=== PATIENT | female | born 1960 | race African-American/Black ===

== ENCOUNTER 2023-08-09 00:53 | Day surgery (SDC) | payer OTHER, SELFPAY ==
[2023-07-15 13:21] VITALS: BMI 47.7
--- NOTE | 2023-08-07 11:35 | SUR.PREOP ---
Patient called regarding upcoming procedure. Reviewed preop instructions, appointment times, and procedure prep. Instructions resent per pt's request.
--- NOTE | 2023-08-08 14:18 | PM.HPGS ---
History of Present Illness History of Present Illness Consent: Risks, benefits, and alternatives have been discussed and questions answered. Patient agrees to proceed with procedure. Chief complaint: neoplasm screening Narrative: Katelyn Joshua is a 63 year old female referred for colon cancer screening. Review of Systems Review of Systems: All systems reviewed & are unremarkable except as noted in HPI and below [facility] Social History Social History Smoking status: Never smoker Substance use type: does not use Living arrangements: other Additional living arrangements comments: with sp Meds Home Medications and Allergies Home Medications Medication Instructions Recorded Confirmed Type No Home Medications 07/15/23 08/09/23 History Allergies Allergy/AdvReac Type Severity Reaction Status Date / Time codeine AdvReac Unknown Verified 08/09/23 08:50 Exam Const: General: alert Orientation/consciousness: patient oriented x3 Resp: Auscultation: clear to auscultation bilaterally Cardio: Rhythm: regular rhythm GI: GI Palp: Yes Soft to palpation and No Tenderness to palpation present (GI) Neuro: General: patient oriented x3 Assessment and Plan Assessment and plan (1) Colon cancer screening: Code(s): Z12.11 - Encounter for screening for malignant neoplasm of colon Status: Acute Assessment and Plan: Colonoscopy with possible biopsy or polypectomy or cautery or injection of substances.
[2023-08-09 08:52] VITALS: BP 145/88; PULSE 71; RESP 20; TEMP 35.8; O2SAT 100
[2023-08-09] MEDS: LACTATED RINGERS 1,000 ML 150 ML IV CONT (09:04)
--- NOTE | 2023-08-09 09:53 | WPDANESEPPF ---
Anes - Initial Pre Proc Eval Procedure: Operation Date: 08/09/23 10:00 Proposed Procedures p Screening Colonoscopy - Jose Alfredo Stack MD Date/Time: 08/09/23 09:53 Surgeon: Jose Alfredo Stack MD Pre Op Diagnosis: neoplasm screening Patient Data Age: 63 Gender: F Height: 1.6 m Weight: 125.1 kg Last Vital Signs Temp 96.4 F L 08/09/23 08:52 Pulse 71 08/09/23 08:52 Resp 20 08/09/23 08:52 BP 145/88 H 08/09/23 08:52 Pulse Ox 100 08/09/23 08:52 O2 Del Method Room Air 08/09/23 08:52 Allergies Allergy/AdvReac Type Severity Reaction Status Date / Time codeine AdvReac Unknown Verified 08/09/23 08:50 Home Medications Medication Instructions Recorded Confirmed Type No Home Medications 07/15/23 08/09/23 History Patient hx anesthesia problems: none Family hx anesthesia problems: none Results Review: All pre-operative results and documents have been reviewed as part of the pre-operative evaluation. [facility] Social History Social History Smoking status: Never smoker Substance use type: does not use Living arrangements: other Additional living arrangements comments: with sp Anes - Eval Final PreProcedure Day of Procedure 08/09/23 09:53 Patient weight: morbidly obese Heart: regular rate and rhythm Lungs: clear to auscultation Airway: Mallampati scale class III Neurological: alert and oriented Last oral intake: >/= 8 hours ASA classification: III Emergent: no Anesthetic plan: proceed Anesthesia type and monitoring: general GIVS and standard monitoring Results Review: All pre-operative results and documents have been reviewed as part of the pre-operative evaluation. Informed Consent: The patient's anesthetic plan and its attendant risks and benefits were discussed with the patient/family/POA. Questions were solicited and answers provided to the satisfaction of the patient/family/POA.
[2023-08-09 10:20] VITALS: BP 97/56; PULSE 60; RESP 22; O2SAT 100
[2023-08-09 10:30] VITALS: BP 104/63; PULSE 56; RESP 18; O2SAT 100
[2023-08-09 10:40] VITALS: BP 117/74; PULSE 58; RESP 18; O2SAT 100
== END 2023-08-09 10:54 | disposition home or self-care (01) ==
PROVIDERS: Visit Provider Internal Medicine Gastroenterology
PROC: 0DJD8ZZ Inspection of Lower Intestinal Tract, Via Natural or Artificial Opening Endoscopic (ICD-10-PCS; CPT 45378; principal; 2023-08-09 10:00)
DX: Z12.11 Encounter for screening for malignant neoplasm of colon (principal); K51.30 Ulcerative (chronic) rectosigmoiditis without complications; E66.01 Morbid (severe) obesity due to excess calories; Z68.42 Body mass index [BMI] 45.0-49.9, adult
CPT/HCPCS: 45380; 88305; J2704; J7120

== ENCOUNTER 2024-05-06 07:26 | Emergency (ER) | payer OTHER, SELFPAY ==
--- NOTE | ~2024-05-06 | CT_ITS ---
CT of the Abdomen and Pelvis: Indication: Abdominal pain Technique: 2.5 mm axial scans were obtained through the abdomen and pelvis following intravenous adm inistration of 100 cc of Omnipaque 350. Dose reduction technique was used on this scan by utilizing a utomated exposure control and iterative reconstruction technique. The dose-length product (DLP) was 1 153.61 mGy-cm. Findings: Scans through the lung bases are unremarkable. The liver, spleen, pancreas, gallbladder, adrenals and kidneys are within normal limits. No evidence of aortic aneurysm. No lymphadenopathy. No bowel obstruction or bowel wall thickening. There evidence of prior bariatric surgery. Prominent s tool suggests constipation. Images through the pelvis were performed. Urinary bladder unremarkable. No pelvic mass. No ascites. Impression: Constipation. Reviewed, dictated and finalized at location . Impression: Constipation.
[2024-05-06 07:31] VITALS: BP 137/89; PULSE 60; RESP 16; TEMP 36.4; O2SAT 98
[2024-05-06 07:55] LABS: Basophils Percent Auto 0.6 % (0.2-1.2); Eosinophils Absolute Auto 0.1 K/mm3 (0-0.3); Eosinophils Percent Auto 1.4 % (0-4.4); Hematocrit 40.1 % (37.0-47.0); Hemoglobin 12.9 g/dL (12.0-15.0); Immature Granulocyte Absolute 0.01 K/mm3 (0.00-0.031); Immature Granulocyte Percent A 0.1 % (0-0.5); Lymphocytes Percent Auto 25.1 % (18.3-44.2); Mean Corpuscular HGB Conc 32.2 g/dl (32-36); Mean Corpuscular Hemoglobin 29.5 pg (26-34); Mean Corpuscular Volume 91.6 fl (80-100); Mean Platelet Volume 10.4 fl (7.4-10.4); Monocytes Absolute Auto 0.5 K/mm3 (0.1-0.6); Neutrophils Absolute Auto 4.7 K/mm3 (1.3-6.7); Neutrophils Percent Auto 65.8 % (45.5-73.1); Platelet Count Result 289 k/mm3 (150-375); Red Blood Count 4.38 M/mm3 (4.2-5.4); Red Cell Distribution Width 16.6 % (11.5-14.5); White Blood Count 7.2 K/mm3 (4.5-10.0)
--- NOTE | 2024-05-06 07:57 | PC.NURSE ---
pt unable to urinate for specimen at this time. pt declining straight cath. call light given to pt and advice to use when she has to use the restroom.
[2024-05-06 08:10] LABS: Alanine Aminotransferase 16 U/L (6-35); Albumin Level 4.1 g/dL (3.5-5.1); Alkaline Phosphatase 88 U/L (38-126); Anion Gap 8 mmol/L (4-12); Aspartate Amino Transferase 27 U/L (14-36); Bilirubin,Total 0.5 mg/dL (0.2-1.3); Blood Urea Nitrogen 9 mg/dL (7-17); Calcium 9.6 mg/dL (8.4-10.2); Carbon Dioxide 28 mmol/L (22-30); Chloride 107 mmol/L (98-107); Estimated CRCL calculation 94 ml/min; Estimated Glomerular Filt Rate > 60; Glucose 91 mg/dL (65-110); Lipase 28 U/L (23-300); Potassium 3.4 mmol/L (3.4-5.0); Sodium 143 mmol/L (137-145)
[2024-05-06 08:40] VITALS: BP 140/77; PULSE 56; RESP 12; O2SAT 100
[2024-05-06 09:16] LABS: Add Urine Microscopic? YES; Appearance Urine Cloudy (Clear); Bacteria Urine 4+ /hpf; Bilirubin Urine Negative (Negative); Blood Urine Negative (Negative); Color Urine Dark Yellow (Yellow); Glucose Urine UA Negative (Negative); Ketones Urine 1+ mg/dL (Negative); Leukocyte Esterase Ur 3+ LEU/UL (Negative); Mucus Urine Present /lpf; Need Manual Microscopic Reviewed; Nitrate Urine Negative (Negative); Protein Urine Trace mg/dL (Negative); RBC Urine 21-50 /hpf (0-2); Specific Grav Ur 1.025 (1.001-1.035); Squamous Epithelial Cell Urine Many /hpf (Few)
--- NOTE | 2024-05-06 09:16 | ED_ITS ---
HPI - General Adult General Chief complaint: Abdominal Pain Stated complaint: ABDOMINAL PAIN Time Seen by Provider: 05/06/24 07:52 History of Present Illness HPI narrative: 63-year-old female presenting to the emergency department for evaluation for abdominal cramping and rectal pain. Patient does report increased rectal pressure when attempting to have a bowel movement. Patient does have history of constipation. Related Data Allergies Allergy/AdvReac Type Severity Reaction Status Date / Time codeine AdvReac Unknown Verified 05/06/24 07:35 Review of Systems Review of Systems: All systems reviewed & are unremarkable except as noted in HPI and below [facility] Social History Social History Smoking status: Never smoker Substance use type: does not use Living arrangements: other Additional living arrangements comments: with sp Exam Narrative: APPEARANCE: Well appearing, no pain, no distress, well-nourished. HEAD: normocephalic, atraumatic. EYES: PERRLA/EOMI, conjunctivae clear. NOSE: Normal no drainage EARS:TMS clear with good light reflex. THROAT: Pharynx clear, no exudate. NECK: Supple. No adenopathy, no masses. RESPIRATORY: Airway patent, respirations nonlabored. Clear to auscultation bilaterally, no rales, rhonchi, wheezing. CARDIOVASCULAR: Regular rate and rhythm without murmurs rubs or gallops. ABDOMINAL: Soft, nontender, nondistended, normal bowel sounds MUSCULOSKELETAL: Moves all extremities. Strength/ROM intact, No edema, No calf tenderness. NEURO: Alert. Cranial nerves II through XII intact. Good gait. Good coordination Rectal exam: Large stool ball within the rectum, patient did not tolerate digital fecal disimpaction SKIN: Warm, dry. Normal Color Course Vital Signs Vital signs: Vital Signs Temperature 97.6 F 05/06/24 07:31 Pulse Rate 60 05/06/24 07:31 Respiratory Rate 16 05/06/24 07:31 Blood Pressure 137/89 05/06/24 07:31 Pulse Oximetry 98 05/06/24 07:31 Oxygen Delivery Room Air 05/06/24 07:31 Temperature 97.6 F 05/06/24 07:31 Pulse Rate 56 L 05/06/24 08:40 Respiratory Rate 12 05/06/24 08:40 Blood Pressure 140/77 05/06/24 08:40 Pulse Oximetry 100 05/06/24 08:40 Oxygen Delivery Room Air 05/06/24 07:31 Medical Decision Making MDM Narrative Medical decision making narrative: 63-year-old female presented to the emergency department for evaluation for constipation. CT scan does show evidence of constipation. Patient is afebrile with no leukocytosis and hemoglobin of 12.9. No acute abnormalities on the CMP. Patient did not tolerate rectal disimpaction. Proceeding with soapsuds enema. Patient did not have large results with the for soapsuds enema patient did request a 2nd soapsuds enema. Patient was also advised to increase her MiraLax dosing. Patient was encouraged of close follow-up with GI. Differential Diagnosis Differential Diagnosis: Colitis, diverticulitis Vital Signs Vital Signs: Vital Signs Temperature 97.6 F 05/06/24 07:31 Pulse Rate 60 05/06/24 07:31 Respiratory Rate 16 05/06/24 07:31 Blood Pressure 137/89 05/06/24 07:31 Pulse Oximetry 98 05/06/24 07:31 Oxygen Delivery Room Air 05/06/24 07:31 Temperature 97.6 F 05/06/24 07:31 Pulse Rate 56 L 05/06/24 08:40 Respiratory Rate 12 05/06/24 08:40 Blood Pressure 140/77 05/06/24 08:40 Pulse Oximetry 100 05/06/24 08:40 Oxygen Delivery Room Air 05/06/24 07:31 Lab Data Lab results reviewed: Yes I reviewed the patient's lab results. 05/06/24 07:46 05/06/24 07:46 Labs: Lab Results 05/06/24 05/06/24 Range/Units 07:46 08:42 WBC 7.2 (4.5-10.0) K/mm3 RBC 4.38 (4.2-5.4) M/mm3 Hgb 12.9 (12.0-15.0) g/dL Hct 40.1 (37.0-47.0) % MCV 91.6 (80-100) fl MCH 29.5 (26-34) pg MCHC 32.2 (32-36) g/dl RDW 16.6 H (11.5-14.5) % Plt Count 289 (150-375) k/mm3 MPV 10.4 (7.4-10.4) fl Immature Gran % (Auto) 0.1 (0-0.5) % Neut % (Auto) 65.8 (45.5-73.1) % Lymph % (Auto) 25.1 (18.3-44.2) % [place] % (Auto) 7.0 (2.6-8.5) % Eos % (Auto) 1.4 (0-4.4) % Baso % (Auto) 0.6 (0.2-1.2) % Lymph # (Auto) 1.80 (0.9-3.2) K/mm3 [place] # (Auto) 0.5 (0.1-0.6) K/mm3 Eos # (Auto) 0.1 (0-0.3) K/mm3 Baso # (Auto) 0.0 (0.0-0.1) K/mm3 Abs Immat Gran (auto) 0.01 (0.00-0.031) K/mm3 Absolute Neuts (auto) 4.7 (1.3-6.7) K/mm3 Absolute Nucleated RBC 0.000 (0.0-0.012) K/mm3 Nucleated RBC % 0.0 (0.0-0.2) % Sodium 143 (137-145) mmol/L Potassium 3.4 (3.4-5.0) mmol/L Chloride 107 (98-107) mmol/L Carbon Dioxide 28 (22-30) mmol/L Anion Gap 8 (4-12) mmol/L BUN 9 (7-17) mg/dL Creatinine 0.60 L (0.7-1.0) mg/dL Estim Creat Clear Calc 94 ml/min Estimated GFR > 60 (59 - ) Glucose 91 (65-110) mg/dL Calcium 9.6 (8.4-10.2) mg/dL Total Bilirubin 0.5 (0.2-1.3) mg/dL AST 27 (14-36) U/L ALT 16 (6-35) U/L Alkaline Phosphatase 88 (38-126) U/L Total Protein 8.0 (6.3-8.2) g/dL Albumin 4.1 (3.5-5.1) g/dL Lipase 28 (23-300) U/L Urine Color Dark yellow (Yellow) Urine Appearance Cloudy H (Clear) Urine pH 7.0 (5.0-9.0) Ur Specific [place] 1.025 (1.001-1.035) Urine Protein Trace (Negative) mg/dL Urine Glucose (UA) Negative (Negative) mg/dL Urine Ketones 1+ H (Negative) mg/dL Ur Blood (Man) Negative (Negative) Urine Nitrate Negative (Negative) Urine Bilirubin Negative (Negative) Urine Urobilinogen 1.0 (<2.0) mg/dL Add Ur Microanalysis Reviewed Leukocyte Esterase Rfl 3+ H (Negative) MAUREEN/UL Urine RBC 21-50 H (0-2) /hpf Urine WBC 6-10 H (0-3) /hpf Ur Squamous Epith Cells Many H (Few) /hpf Urine Bacteria 4+ H /hpf Urine Casts 3-5 Urine Mucus Present /lpf Imaging Data Radiologist's impression: Impressions Abdomen/Pelvis CT 05/06/24 08:41 Impression: Constipation. Discharge Plan Discharge Clinical Impression: Constipation, UTI (urinary tract infection) Patient Disposition: Home, Self-Care Condition: Stable Instructions: Antibiotic Form, Constipation (DC), Abdominal Pain (ED) Additional Instructions: MiraLax as directed to help with constipation. If MiraLax does not help to resolve your constipation then I also recommend magnesium sulfate. Have close follow-up with GI. If you have any worsening symptoms and please call or return to the emergency department. Prescriptions: New cephalexin 500 mg capsule 500 mg PO Q8H 7 Days Qty: 21 0RF No Action mesalamine 1.2 gram tablet,delayed release (DR/EC) 2.4 g PO DAILY Qty: 180 1RF Follow-up/Referrals: UNKNOWN,DOCTOR [Primary Care Provider] -
--- NOTE | 2024-05-06 12:23 | PC.NURSE ---
pt reports she still feels backed up and would like another soaps suds enema. EDP provider made aware and okay with administering another enema.
== END 2024-05-06 13:06 | disposition home or self-care (01) ==
PROVIDERS: Emergency Provider Emergency Medicine
DX: N39.0 Urinary tract infection, site not specified (principal); K59.00 Constipation, unspecified
CPT/HCPCS: 36415; 74177; 80053; 81001; 83690; 85025; 87086; 96365; 99284; J0696; Q9967

== ENCOUNTER 2024-10-08 14:16 | Outpatient (CLI) | payer OTHER, SELFPAY ==
--- OUTSIDE RECORDS SUMMARY | 2024-10-08 14:47 | XMS_ITS | Clinical Summary ---
Author Organization [facility] Address [address] [place] [address] Care Team Providers Care Corduroy Cutter Operator Name Role Phone Meena Roberson DO Primary Care Provider [phone] [phone] Allergies Active Allergy Reactions Criticality Noted Date Comments Codeine Other (see comment) 04/23/2023 Reaction: Other, Medications mesalamine EC (LIALDA) 1.2 g Tab EC tablet Take 2 tablets (2.4 g total) by mouth daily. 08/12/2023 Active nitrofurantoin, macrocrystal-mo nohydrate, (MACROBID) 100 MG capsuleIndicati ons:Urinary frequency Take 1 capsule (100 mg total) by mouth 2 (two) times daily for 5 days. 10 capsule 10/01/2024 10/07/19 25 Active Problems Problem Noted Date Diagnosed Date Urinary frequency 10/01/2024 S/P bariatric surgery 04/29/2024 Prediabetes 05/09/2023 Obstructive sleep apnea 04/23/2023 Assessment & Plan (09/09/2023 3:54 PM BUS MONITOR): [facility] Home Sleep Study 09/05/23 RESPIRATORY ANALYSIS SUMMARY A total of 29 apneas (4 of which were Central/Mixed based on respiratory effort) and 126 hypopneas were identified. The total number of obstructive events (apneas and hypopneas) was 151. The Total Apnea Index (central/mixed and obstructive events) was 5.8 per hour. The Central/Mixed Apnea Index was 0.8 per hour based on respiratory effort. The Central/Mixed % Ratio was 4%. During the recording period, there was a total of 110 desaturations. The baseline oxygen level was 100% and the lowest oxygen level was 76%. The time spent at or below an oxygen saturation of 88% was 12 min 4 %. The AHI 3% (RDI) was 31.1 per hour. During periods of the recording the Maximum Density of the AHI 3% (RDI) was elevated up to 73.8. The AHI 4% was 22.5 per hour; this index includes hypopneas that exhibit oxygen desaturations of 4% or greater, and all apneas. INTERPRETATION: During the recording there was evidence of moderate obstructive sleep apnea (KANDACE) based on the 4% criterion for hypopnea. Based on the 3% criterion, the severity would be elevated to severe sleep apnea. There was evidence of significant oxygen desaturation. Specifically, the time that the SpO2 was at or below 88% was 12 min (4%). Class 3 severe obesity due t o excess calories with serious comorbidity and body mass index (BMI) of 50.0 to 59.9 in adult 11/21/2013 Overview (09/09/2023): OBESITY NOS Hyperlipidemia 11/21/2013 Overview (09/09/2023): HYPERLIPIDEMIA NEC/NOS Ulcerative colitis ([facility]) 11/21/2013 Overview (09/09/2023): ULCERATIVE COLITIS Resolved Problems Problem Noted Date Diagnosed Date Resolved Date Onychomycosis of right great toe 04/23/2023 04/29/2024 Encounters Date Type Department Care Team Description 10/01/2024 10:40 AM CDT Office Visit [facility] Medical [facility] Family Medicine [address] [phone] Memo Garza MD Urine 10/01/2024 - 10/01/2024 11:59 PM CDT Hospital Encounter [facility] [address] [place] [address] Memo Garza MD Discharge Disposition: Home or Self Care (Routine Discharge) 10/01/2024 Travel 08/14/2024 Scan [facility] SRVCS Scanned, [facility] from Last 3 Months Immunizations Name Administration Dates Next Due Fluzone (IIV3, Trivalent, 0. 5 ML Prefilled Syringe) 04/29/2024 Influenza (Generic) 03/06/2016, 4,05/12/2013, 012,04/12/2011 Influenza Adult (Generic) 04/13/2023,,04/21/2021, 020,05/07/2019,05/06/2018 MODERNA COVID-19 BIVALENT (1 2+), MRNA, LNP-S, PF 06/05/2022 MODERNA COVID-19 (12+) MRNA, LNP-S, PF, 100 MCG/ 0.5 ML DOSE 09/17/2020,08/20/2020 MODERNA COVID-19 (CLERICAL GRADER KIM MONSERRAT), MRNA, LNP-S, PF, 50 MCG/ 0.25 ML DOSE 12/26/2021,06/06/2021 PFIZER COVID-19 (12+) MRNA, LNP-S, PF, SIL-SUCROSE, 30 MCG/0.3 ML (COMIRNATY) 04/29/2024 Tdap (Generic) 03/06/2016 Family History Relation Status Comments Brother 1 Alive Brother 2 Alive Brother 3 Alive Daughter Alive Father Maternal Grandfather Maternal Grandmother Mother Paternal Grandfather Paternal Grandmother Sister 1 Alive Sister 2 Alive Sister 3 Alive Son Alive Social History Tobacco Use Types Packs/Day Years Used Date Smoking Tobacco: Never Passive Smoke Exposure: Never Smokeless Tobacco: Never Tobacco Cessation:Counseling Given: Yes Alcohol Use Standard Drinks/Week Comments Never 0 (1 standard drink = 0.6 oz pur e alcohol) PHQ-2 Answer Date Recorded Patient Health Questionnaire-2 Score 0 10/01/2024 Comments No Sex and Gender Information Value Date Recorded Sex Assigned at Not on file Legal Sex Female 10:07 AM CDT Gender Identity Not on file Sexual Orientation Not on file Last Filed Vital Signs Vital Sign Reading Time Taken Comments Blood Pressure 139/81 10/01/2024 10:47 AM CDT Pulse 61 10/01/2024 10:47 AM CDT Temperature 36.3 C (97.4 F) 10/01/2024 10:47 AM CDT Respiratory Rate 17 10/01/2024 10:47 AM CDT Oxygen Saturation 100% 10/01/2024 10:47 AM CDT Inhaled Oxygen Concentration - - Weight 92.8 kg (204 lb 8 oz) 10/01/2024 10:47 AM CDT Height 161.3 cm (5' 3.5 ) 04/29/2024 3:33 PM CDT Body Mass Index 35.66 04/29/2024 3:33 PM CDT Plan of Treatment Upcoming Encounters Date Type Department Care Team (Late st Contact Info) Description 05/11/2025 2:20 PM BUS MONITOR Office Visit [facility] Medical Group Family Medicine - [place] [address] [place] [phone] Meena Roberson DO [place], [place] [id number] Health Maintenance Due Date Last Done Comments Zoster Vaccines (1 of 2) 2010 Annual Physical 04/29/2025 04/29/2024 Mammogram Screening 2025 2023, 01/27/2015, 10/12/2013, Additional history exists DTaP, Tdap and Td Vaccines (2 - Td or Tdap) 03/06/2026 03/06/2016 Cervical Cancer Screening Pap Smear (Age 30 to 64) Every 3 Years 05/09/2026 05/09/2023 Cervical Cancer Screening Pap with HPV Testing (Age 30 to 64) Every 5 Years 05/09/2028 05/09/2023 Cervical Cancer Screening with HPV 05/09/2028 Colorectal Cancer Screening Colonoscopy (10 Years) 08/09/2033 08/09/2023 RSV Immunization or 60+ Years (1 - 1-dose 75+ series) 2035 Hepatitis C Completed 04/23/2023 COVID-19 Vaccine Completed 04/29/2024, 01/2023, 06/05/2022, Additional history exists PHQ-2 (Physician [place]) Completed 10/01/2024 Meningococcal B Vaccine Aged Out No l onger eligible based on patient's age to complete this topic Meningococcal Vaccine Aged Out No jennifer yung eligible based on patient's age to complete this topic Pneumococcal Vaccine: Pediatrics (0 to 5 Years) and At-Risk Patients (6 to 64 Years) Aged Out No longer eligible based on patient's age to complete this topic RSV Immunizations Under 20 Months Aged Out No longer eligible based on patient's age to complete this topic Procedures Procedure Name Priority Date/Time Associated Diagnosis Comments URINE BACTERIA CULTURE Routine 10/01/2024 11:33 AM CDT Urinary frequency URINALYSIS AUTO DIP Routine 10/01/2024 Urinary frequency COLONOSCOPY GENERIC (SCAN ORDER) 08/09/2023 MG SCREENING W JANETH LENA DIGI Routine 2023 3:45 PM BUS MONITOR Screening mammogram for breast cancer HUMAN PAPILLOMAVIRUS, HIGH-RISK TYPES Routine 05/09/2023 12:00 PM CDT CYTOPATH CERV/VAG THIN LAYER Routine 05/09/2023 12:00 AM CDT HEPATITIS C ANTIBODY Routine 04/23/2023 10:43 AM CDT Encounter for hepatitis C screening test for low risk patient from Last 3 Months or Most Recently Relevant to Health Maintenance Results * URINE BACTERIA CULTURE (10/01/2024 11:33 AM CDT) SPEC DESCRIPTION URINE CLEAN CATCH 10/01/2024 11:33 AM CDT [facility] SPECIAL REQUESTS NO SPECIAL REQUEST 10/01/2024 11:33 AM CDT [facility] CULTURE RESULT FEW CONTAMINANTS 09/06 7:42 AM CDT [facility] URINE SPECIMEN OBTAINED BY CLEAN CATCH PROCEDURE / Unknown 10/01/2024 11:33 AM CDT 10/01/2024 8:57 PM CDT us Memo Garza MD MICROBIOLOGY - GENERAL ORDERAB LES Final Result Performing Organization Address City/[facility]/ZIP Co de Phone Number [facility] [address] [place] [address], [place] [phone] * (ABNORMAL) URINALYSIS AUTO DIP (10/01/2024) COLOR (U) YELLOW YELLOW MG-JOYNER KARLI, ROBYN TRANSPARENCY CLEAR CLEAR MG-SMITH MAN KARLI, ROBYN GLUCOSE (U) NEGATIVE NEGATIVE MG/DL MG-JOYNER KARLI, ROBYN BILIRUBIN (U) NEGATIVE NEGATIVE MG-GLORIA TMAN KARLI, ROBYN KETONES MG/DL (U) NEGATIVE NEGATIVE MG/DL MG-JOYNER KARLI, ROBYN SPECIFIC GRAVITY (U) 1.025 1.001 - 1.035 MG-JOYNER KARLI, ROBYN BLOOD (U) TRACE (Hemolyzed)( A) NEGATIVE MG-JOYNER KARLI, ROBYN U PH 5.5 5.0 - 9.0 MG-JOYNER KARLI, ROBYN PROTEIN (U) NEGATIVE NEGATIVE mg/dL MG-JOYNER KARLI, ROBYN UROBILINOGEN 0.2 0.2 - 1.0 EU/dL = mg/dL MG-JOYNER KARLI, ROBYN NITRITES NEGATIVE NEGATIVE MG/DL MG-JOYNER KARLI, ROBYN LEUKOCYTES (U) 1+ (SMALL)(A) NEGATIVE MG-JOYNER KARLI, ROBYN URINE SPECIMEN OBTAINED BY CLEAN CATCH PROCEDURE / Unknown 10/01/2024 Memo Garza MD URINE ORDERABLES Final Result MG-JOYNERAPRIL CALVILLO, ROBYN [address] [place] [address], [place] [phone] * COLONOSCOPY GENERIC (SCAN ORDER) (08/09/2023) 08/09/2023 [facility] Scanned SCANNING Final Resu lt * MG SCREENING W JANETH LENA DIGI (2023 3:45 PM BUS MONITOR) Anatomical Region Laterality Modality Breast Bilateral Mammography 05/22/2023 12:2 6 PM BUS MONITOR Narrative 05/22/2023 12:27 PM BUS MONITOR Examination: Digital bilateral screening mammogram with 3D Tomosynthesis Exam Date/Time: 2023 3:13 PM Reason For Exam: Screening mammogram Benign biopsy of unknown breast at unknown date. No personal or family history of breast cancer. No current complaints. Comparison: Mammograms from 01/27/2015 10/12/2013 Technique: Digital screening mammography of both breasts was performed in addition to 3-D Tomosynthesis technique. This study was read with the assistance of a computer-aided detection system. Tissue density: There are scattered areas of fibroglandular density. Findings: Benign bilateral axillary lymph nodes. Biopsy marker again seen in the left breast in stable position. Overall parenchymal pattern unchanged from prior studies. There is no new focal asymmetry, dominant mass lesion, area of skin thickening, or cluster of suspicious appearing calcifications in either breast to suggest malignancy. ===== IMPRESSION: ===== 1. Stable mammographic appearance with no new findings to suggest malignancy in either breast. Assessment: ACR BI-RADS 2 - BENIGN FINDING(S) Recommendation: 1:Routine Screening Bilateral Comments: Ordered By: MEENA ROBERSON Interpreted By: Adolfo López MD, 05/22/2023 12:26 PM Meena Roberson DO MAMMO Final Resul t * HUMAN PAPILLOMAVIRUS, HIGH-RISK TYPES (05/09/2023 12:00 PM CDT) SPEC DESCRIPTION CERVIX 05/13/20 9:08 AM BUS MONITOR [facility] HPV DNA HIGH RISK NEGATIVE NEGATIVE 05/14/2023 12:57 AM BUS MONITOR [facility] Comment:SEE CYTOLOGY REPORT 05/09/2023 12:0 0 PM CDT us Meena M James DO PATHOLOGY/CYTOLOGY ORDERABL ES Final Result [facility] [address] [place] [address], * Cytopath Cerv/Vag Thin Layer (05/09/2023 12:00 AM CDT) THIN PREP PAP [facility] [address] [place] [address] Department of Pathology Pathology Report CERVICAL/VAGINAL PAP SMEAR REPORT Name: KATELYN JOSHUA Age: 11 1960 (Age: 62) Location[facility] Sex: F Collected Date: 05/09/2023 [facility] #: [id number] Date Received: 05/13/2023 Date Reported: 05/14/2023 Provider: MEENA ROBERSON DO INTERPRETATION CERVICAL/ENDOCERVI BRIAN: SATISFACTORY FOR EVALUATION. ENDOCERVICAL/TRANS FORMATION ZONE COMPONENT ABSENT. NEGATIVE FOR INTRAEPITHELIAL LESION OR MALIGNANCY. NEGATIVE FOR HIGH RISK HPV. The FDA approved Aptima HPV assay is an in vitro nucleic acid amplification test for the qualitative detection of E6/E7 viral messenger RNA (mRNA) from 14 high-risk types of human papillomavirus (HPV) in cervical specimens. The high-risk HPV types detected by the assay include: 16,18,31,33,35,39, 45,51,52,56,58,59, 66, and 68. Electronically Signed Out By JOSE Burkett (ASCP) CLINICAL HISTORY Z12.4 SCREENING PAP ThinPrep Pap Test with HR HPV testing in patient > 30 years requested. Date of Last Menstrual Period: NA Menstrual Status: Post-Menopausal SPECIMEN SUBMITTED CERVICAL/ENDOCERVI BRIAN Specimen Received:1 Thin Prep Vial, Image Assisted Pap (SMD) Please note: The Pap smear is not a diagnostic test. It is a screening test. Negative results on combined screening (Pap test and HPV-DNA) have a high negative predictive value (99.1-100 percent) for cervical cancer. The pap test is not effective in detecting cervical adenocarcinoma. [facility] 05/09/2023 05/13/2023 6:5 7 AM BUS MONITOR Comment:CERVICAL/ENDOCERVICA L Meena Roberson DO PATHOLOGY/CYTOLOGY ORDERABL ES Final Result [facility] [address] [place] [address], * HEPATITIS C ANTIBODY ([facility] ONLY) (04/23/2023 10:43 AM CDT) HEPATITIS C AB NON-REACTI VE NON-REACT CARLOS 04/23/2023 10:19 PM CDT [facility] Comment: ANTIBODIES TO HCV NOT DETECTED. DOES NOT EXCLUDE THE POSSIBILITY OF EXPOSURE TO HCV. 04/23/2023 10:4 3 AM CDT Meena Roberson DO LABORATORY Final Resul t Performing Organization Address City/[facility] Co de Phone Number [facility] [address] [place] [address], [place] [phone] from Last 3 Months or Most Recently Relevant to Health Maintenance Insurance [id number] Care Teams Corduroy Cutter Operator Relationship Specialty Start Date End Date Meena Roberson [place] [place] [address] PCP - General FAMILY PRACTICE 04/15/23
--- OUTSIDE RECORDS SUMMARY | 2024-10-08 14:47 | XMS_ITS | Clinical Summary ---
Author Organization [facility] Address [address] [place] [address] Care Team Providers Care Park Maintenance Technician Name Role Phone JamesJose DO Primary Care Provider [phone] [phone] Source Comments [facility],non-owned Affiliates and Associated Physician Practices is amultiple site organization consisting of ambulatory clinics and hospital sitesin [place], [place], [place] and [place]. This disclosure is being madepursuant to the Care Everywhere program and may not contain all information available regarding this patient. Last updated 18.[facility] Allergies Active Allergy Reactions Criticality Noted Date Comments Codeine Other 04/23/2023 Reaction: Other, Medications * Be aware that medications may not be up to date on this document. Alwaysverify current medications with the patient. Medication Sig Dispensed Refills Start Date End Date Status mesalamine EC (Lialda) 1.2 g tablet 11/05/2023 Active acetaminophen (Tylenol) 160 MG/5ML solution Take 31.25 mL by mouth every 8 hours 03/05/2024 Active ondansetron, disintegrating, (Zofran ODT) 4 MG tablet Take 1 (one) tablet by mouth every 6 hours as needed for Nausea/Vomiting Allow tablet to dissolve on the tongue 20 tablet 03/05/2024 Active omeprazole (PriLOSEC) 20 MG capsule Take 1 (one) capsule by mouth once daily 30 capsule 5 03/11/2024 Active oxyCODONE (Roxicodone) 5 MG/5ML oral solutionIndicatio ns:Morbid (severe) obesity due to excess calories (HCC) TAKE 5 ML BY MOUTH EVERY 6 HOURS NEEDED FOR PAIN 120 mL 03/05/2024 Active Additional Information Patient not taking.Reported on 03/11/2024 omeprazole (PriLOSEC) 20 MG capsule TAKE 1 (ONE) CAPSULE BY MOUTH ONCE DAILY 30 capsule 03/05/2024 Active ondansetron, disintegrating, (Zofran ODT) 4 MG tablet DISSOLVE 1 TABLET ON THE TONGUE EVERY 6 HOURS NEEDED FOR NAUSEA/VOMITING 30 tablet 1 04/03/2024 04/03/2025 Active Additional Information Patient not taking.Reported on 09/10/2024 hyoscyamine (Levsin SL) 0.125 MG sublingual tablet Dissolve 1 (one) tablet under the tongue every 4 hours as needed for Spasms 30 tablet 04/30/2024 Active Additional Information Patient not taking.Reported on 09/10/2024 Active Problems Problem Noted Date Diagnosed Date Morbid obesity 03/04/2024 Encounters Date Type Department Care Team Description 09/10/2024 9:30 AM HOOD MAKER Office Visit [facility] Weight Management Services [address] [place] [address], [place] [phone] Kelley Hatch, MAGDY-RESTAURANT MANAGER S/P bariatric surgery (Primary Dx); Morbid obesity; Vitamin deficiency; Vitamin D deficiency; Vitamin B deficiency; Mineral deficiency; Intestinal malabsorption, unspecified type 09/04/2024 Travel from Last 3 Months Family History Medical History Relation Name Comments Cancer - Pancreatic Father Cancer - Other Mother brain Obesity Sister Relation Name Status Comments Father Mother Sister Alive Social History Tobacco Use Types Packs/Day Years Used Date Smoking Tobacco: Never Smokeless Tobacco: Never Tobacco Cessation:Counseling Given: Not Answered Alcohol Use Standard Drinks/Week Comments Not Currently 0 (1 standard drink = 0.6 oz pur e alcohol) AUDIT-C Answer Date Recorded Q1: How often do you have a drink containing alcohol? Never 03/04/2024 Q2: How many drinks containi ng alcohol do you have on a typical day when you are drinking? Patient does not drink Q3: How often do you have si x or more drinks on one occasion? Never 03/04/2024 Overall Financial Resource Strain (CARDIA) Answe r Date Recorded How hard is it for you to pa y for the very basics like food, housing, medical care, and heating? Not hard at all 03/04/2024 [employer] [facility] [employer] Occupat ional Health - Occupational Stress Questionnaire Answer Date Recorded Do you feel stress - tense, restless, nervous, or anxious, or unable to sleep at night because your mind is troubled all the time - these days? Not at all 03/04/2024 Hunger Vital Sign Answer Date Recorded Within the past 12 months, y ou worried that your food would run out before you got the money to buy more. Never true 03/04/20 24 Within the past 12 months, t he food you bought just didn't last and you didn't have money to get more. Never true 03/04/2024 PRAPARE - Transportation Answer Date Re corded In the past 12 months, has l ack of transportation kept you from medical appointments or from getting medications? No 02/06 In the past 12 months, has l ack of transportation kept you from meetings, work, or from getting things needed for daily living? No 03/04/2024 Housing Stability Vital Sign Answer Nawaf e Recorded In the last 12 months, was t here a time when you were not able to pay the mortgage or rent on time? No 03/04/2024 In the last 12 months, how many places have you lived? 1 03/04/2024 In the last 12 months, was t here a time when you did not have a steady place to sleep or slept in a mcfp (including now)? No 03/04/2024 Sex and Gender Information Value Date Recorded Sex Assigned at Not on file Gender Identity Not on file Sexual Orientation Not on file Last Filed Vital Signs Vital Sign Reading Time Taken Comments Blood Pressure 124/76 09/10/2024 9:26 AM HOOD MAKER Pulse 89 09/10/2024 9:26 AM HOOD MAKER Temperature 36.1 C (97 F) 09/10/2024 9:26 AM HOOD MAKER Respiratory Rate 12 05/14/2024 8:15 AM HOOD MAKER Oxygen Saturation 99% 09/10/2024 9:26 AM HOOD MAKER Inhaled Oxygen Concentration - - Weight 96.6 kg (213 lb) 09/10/2024 9:26 AM HOOD MAKER Height 160 cm (5' 3 ) 09/10/2024 9:26 AM HOOD MAKER Body Mass Index 37.73 09/10/2024 9:26 AM HOOD MAKER Plan of Treatment Upcoming Encounters Date Type Department Care Team (Late st Contact Info) Description 03/04/2025 9:30 AM CDT Office Visit [facility] Weight Management Services [address], [address] [place] [address] Kelley Hatch, BLACKSMITH ASSISTANT-RESTAURANT MANAGER [address] [address] [place] [phone] Health Maintenance Due Date Last Done Comments COLOGUARD (AGES 45-75) - COLON CA SCREENING 1960 COLON MONITORING 1960 COLONOSCOPY - COLON CA SCREENING 1960 CT COLONOGRAPHY - COLON CA SCREENING 1960 Colorectal Cancer Screening 1960 FIT - COLON CA SCREENING 1960 FLEX SIG - COLON CA SCREENING 1960 LIPID TESTING 1960 Opioid Medication Agreement - Annual 1960 Opioid Medication Urine Drug Screening 1960 HIV SCREENING 1975 DTAP/TDAP/TD VACCINES (1 - Tdap) 1979 PNEUMOCOCCAL VACCINE 50+ (1 of 1 - PCV) 2010 ZOSTER VACCINE (1 of 2) 2010 COVID-19 VACCINE ( season) 2024 06/05/2022, 12/26/2021, 06/06/2021, Additional history exists DEPRESSION SCREENING 07/08/2024 MAMMOGRAM 2025 2023, 2023 PAP SMEAR 05/09/2026 05/09/2023, 05/09/2023 SCREENING FOR DIABETES 03/09/2027 4, 03/08/2024, 03/06/2024, Additional history exists Respiratory Syncytial Virus (RSV) Vaccine Pt: or over 60 yrs (1 - 1-dose 75+ series) 2035 HEPATITIS C SCREENING Completed 04/23/2023 INFLUENZA VACCINE Completed 04/29/2024, , 06/05/2022, Additional history exists HEPATITIS B VACCINE Aged Out No longe r eligible based on patient's age to complete this topic HIB VACCINE Aged Out No longer eligi ble based on patient's age to complete this topic HPV VACCINE Aged Out No longer eligi ble based on patient's age to complete this topic MENINGOCOCCAL (Group B) VACCINE SHARED DECISION-MAKING Aged Out No longer eligible based on patient's age to complete this topic MENINGOCOCCAL GROUPS A/C/Y/W VACCINE Aged Out No longer eligible based on patient's age to complete this topic Procedures Procedure Name Priority Date/Time Associated Diagnosis Comments GLUCOSE - POINT OF CARE Routine 03/09/2024 11:45 AM CDT from Last 3 Months or Most Recently Relevant to Health Maintenance Results * GLUCOSE - POINT OF CARE (03/09/2024 11:45 AM CDT) Glucose WB/POC 85 70 - 106 mg/dL 03/09/2024 3:52 PM CDT [facility] Specimen Type Cap Fingerstick 2023 3:52 PM CDT [facility] Blood BLOOD SPECIMEN / Unknown 03/09/2024 11:45 AM CDT 03/09/2024 3:52 PM CDT Pollo Quintero MD LAB - POINT OF CARE ORDERABLES Performing Organization Address City/State/[facility] Co de Phone Number [facility] [address] [place] [phone] from Last 3 Months or Most Recently Relevant to Health Maintenance Advance Directives * Full Code (Latest Code Status on File) Date Activated Date Inactivated Comments 03/04/2024 4:41 PM 03/09/2024 4:51 PM Care Teams Park Maintenance Technician Relationship Specialty Start Date End Date Jose Ramirez DO [address] [place] [address] PCP - General Family Medicine 03/04/24
--- OUTSIDE RECORDS SUMMARY | 2024-10-08 14:47 | XMS_ITS | Encounter Summary ---
Author Organization [facility] Address [address] [place] [address] Care Team Providers Care Outside Repairer Special Name Role Phone Jose Ramirez DO Primary Care Provider [phone] [phone] Encounter Details Date Type Department Care Team (Late Contact Info) Description 07/21/2023 MyChart Message Enc [address] [address] Jose Ramirez DO [address] [place] [address] Sleep apnea test. Social History Tobacco Use Types Packs/Day Years Used Date Smoking Tobacco: Never Smokeless Tobacco: Never Alcohol Use Standard Drinks/Week Comments Never 0 (1 standard drink = 0.6 oz pur e alcohol) PHQ-2 Answer Date Recorded Patient Health Questionnaire-2 Score 0 05/09/2023 Comments No Sex and Gender Information Value Date Recorded Sex Assigned at Not on file Legal Sex Female 10:07 AM CDT Gender Identity Not on file Sexual Orientation Not on file documented as of this encounter Plan of Treatment Upcoming Encounters Date Type Department Care Team (Late Contact Info) Description 05/11/2025 2:20 PM INTERNAL CARVER Office Visit [facility] [address] [place] [address] Jose Ramirez DO [address] [place] [address] documented as of this encounter Visit Diagnoses Not on filedocumented in this encounter Care Teams Outside Repairer Special Relationship Specialty Start Date End Date Jose Ramirez DO [address] [place] [address] PCP - General FAMILY PRACTICE 04/15/23 documented as of this encounter
[2024-10-08 15:19] LABS: Hematocrit 38.1 % (37.0-47.0); Hemoglobin 12.2 g/dL (12.0-15.0); Mean Corpuscular Hemoglobin 29.4 pg (26-34); Mean Corpuscular Volume 91.8 fl (80-100); Mean Platelet Volume 10.2 fl (7.4-10.4); Platelet Count Result 281 k/mm3 (150-375); Red Blood Count 4.15 M/mm3 (4.2-5.4); Red Cell Distribution Width 15.4 % (11.5-14.5); White Blood Count 6.7 K/mm3 (4.5-10.0)
[2024-10-08 16:06] LABS: Alanine Aminotransferase 39 U/L (6-35); Albumin Level 3.9 g/dL (3.5-5.1); Alkaline Phosphatase 126 U/L (38-126); Anion Gap 6 mmol/L (4-12); Aspartate Amino Transferase 51 U/L (14-36); Bilirubin,Total 0.3 mg/dL (0.2-1.3); Blood Urea Nitrogen 15 mg/dL (7-17); Calcium 9.3 mg/dL (8.4-10.2); Carbon Dioxide 29 mmol/L (22-30); Chloride 106 mmol/L (98-107); Estimated Glomerular Filt Rate > 60; Glucose 83 mg/dL (65-110); Magnesium 1.9 mg/dL (1.6-2.3); Potassium 3.9 mmol/L (3.4-5.0); Sodium 141 mmol/L (137-145)
[2024-10-08 16:10] LABS: Iron 63 ug/dL (37-170)
[2024-10-08 16:13] LABS: Prealbumin 20.3 mg/dL (17.6-36.0)
[2024-10-08 16:22] LABS: Percent Iron Saturation 21 % (20-50)
[2024-10-08 16:49] LABS: Parathyroid Intact 68.5 pg/mL (14.5-75.2)
[2024-10-11 15:38] LABS: Zinc 68 mcg/dL (60-130)
[2024-10-12 15:44] LABS: Red Blood Cell Folate 473 ng/mL RBC (>280)
[2024-10-14 10:03] LABS: Vitamin B1 11 nmol/L (8-30)
[2024-10-15 05:44] LABS: Alpha-Tocopherol 12.1 mg/L (5.7-19.9); Beta-Gamma Tocopherol 1.2 mg/L (<4.4); Vitamin A 49 mcg/dL (38-98)
[2024-10-15 13:03] LABS: Vitamin K1 252 pg/mL (130-1500)
== END 2024-10-08 14:17 | disposition home or self-care (01) ==
DX: E66.01 Morbid (severe) obesity due to excess calories (principal); Z98.84 Bariatric surgery status; E56.9 Vitamin deficiency, unspecified; E55.9 Vitamin D deficiency, unspecified; E53.9 Vitamin B deficiency, unspecified; E61.8 Deficiency of other specified nutrient elements
CPT/HCPCS: 36415; 80053; 82306; 82525; 82607; 82728; 82747; 83540; 83550; 83735; 83970; 84134; 84425; 84446; 84590; 84597; 84630; 85027